=== PATIENT | female | born 1990 | race Caucasian/White ===

== ENCOUNTER → 2019-02-18 | Outpatient (CLI) | payer OTHER ==
--- NOTE | 2019-02-18 14:31 | US ---
EXAMINATION TYPE: US transvaginal DATE OF EXAM: 02/18/2019 COMPARISON: Prev OB only CLINICAL HISTORY: R01.2 Pelvic pain. Pt states RLQ pain x few months TECHNIQUE: Transvaginal (TV). Transvaginal sonographic images of the pelvis were acquired. Date of LMP: 02/08/2019 EXAM MEASUREMENTS: Uterus: 9.2 x 4.5 x 5.1 cm Endometrial Stripe: 0.8 cm Right Ovary: 2.6 x 2.0 x 2.9 cm Left Ovary: 2.7 x 2.0 x 1.9 cm 1. Uterus: Anteverted Heterogeneous with probable scar 2. Endometrium: wnl 3. Right Ovary: wnl 4. Left Ovary: wnl, dominant follicle= 1.1 cm 5. Bilateral Adnexa: wnl 6. Posterior cul-de-sac: wnl IMPRESSION: 1. The uterus is heterogeneous in appearance which is nonspecific finding. This can occasionally be s een with diffuse fibroid change or adenomyosis. No focal fibroid is seen. There is suspicion for a pr obable scar. Correlate with surgical history for confirmation.
== END | disposition home or self-care (01) ==
LOC: RADUSWWP 12:04
PROVIDERS: ATTEND Family Medicine
DX: N80.0 Endometriosis of uterus (principal); Z98.890 Other specified postprocedural states
CPT/HCPCS: 76830

== ENCOUNTER 2021-03-14 21:05 | Emergency (ER) | payer OTHER ==
[2021-03-14 22:01] LABS: Appearance,Urine Clear (Clear); Bilirubin,Urine Negative (Negative); Blood,Urine Negative (Negative); Color,Urine Light Yellow; Glucose,Urine (UA) Negative (Negative); Ketones,Urine Negative (Negative); Leukocyte Esterase,Urine Negative (Negative); Nitrite,Urine Negative (Negative); Protein,Urine Negative (Negative); Specific Gravity,Urine 1.021 (1.001-1.035); Urobilinogen,Urine <2.0 mg/dL (<2.0)
[2021-03-14] MEDS ORDERED: SODIUM CHLORIDE 0.9% 1,000 ML IV STA (22:43)
--- NOTE | 2021-03-14 22:45 | ED ---
General Adult HPI - General Chief complaint: Abdominal Pain Stated complaint: Fever,Pain in kidney area Time Seen by Provider: 03/14/21 22:30 Source: patient Mode of arrival: ambulatory Limitations: no limitations - History of Present Illness Initial comments: 30-year-old female presents to the emergency room for chief complaint of right flank pain. Patient reports for the past month or so on and off she has had right-sided low back pain. States it is a sharp pain. States it comes and goes. Patient states it was bothering her in the car but after she got here it resolved. Patient is also complaining of fevers on and off for the past few weeks. States today her temperature was 100.5. States it only comes every now and then. Patient states she has tested negative for covid. She denies cough or congestion. Denies sore throat..Patient has no other complaints at this time including shortness of breath, chest pain, abdominal pain, nausea or vomiting, headache, or visual changes. - Related Data Home Medications Medication Instructions Recorded Confirmed Pnv,Calcium 72/Iron/Folic Acid 1 each PO DAILY 06/06/15 06/06/15 [ Plus Tablet] Allergies Allergy/AdvReac Type Severity Reaction Status Date / Time No Known Allergies Allergy Verified 03/14/21 21:34 Review of Systems ROS Statement: Those systems with pertinent positive or pertinent negative responses have been documented in the HPI. ROS Other: All systems not noted in ROS Statement are negative. Past Medical History Past Medical History: No Reported History History of Any Multi-Drug Resistant Organisms: None Reported Past Surgical History: No Surgical Hx Reported Past Psychological History: No Psychological Hx Reported Smoking Status: Never smoker Past Alcohol Use History: None Reported Past Drug Use History: None Reported General Exam Limitations: no limitations General appearance: alert, in no apparent distress Head exam: Present: atraumatic Eye exam: Present: normal appearance, PERRL, EOMI. Absent: scleral icterus, conjunctival injection ENT exam: Present: normal exam, mucous membranes moist Neck exam: Present: normal inspection, full ROM. Absent: tenderness Respiratory exam: Present: normal lung sounds bilaterally. Absent: respiratory distress, wheezes Cardiovascular Exam: Present: regular rate, normal rhythm, normal heart sounds GI/Abdominal exam: Present: soft, normal bowel sounds. Absent: distended, tenderness Course Vital Signs 03/14/21 21:31 Temperature 98.2 F Pulse Rate 102 H Respiratory 19 Rate Blood Pressure 124/66 O2 Sat by Pulse 97 Oximetry Medical Decision Making - Medical Decision Making Vitals are stable. CBC unremarkable. CMP does show some evidence of dehydration. Urinalysis negative. HCG is negative. CT abdomen and pelvis shows a small nonobstructing left renal calculus however no cause for right flank pain. At this time patient is stable for outpatient follow-up. She will follow-up with her doctor. She will return to the emergency room for any worsening symptoms. - Lab Data Result diagrams: 03/14/21 23:30 03/14/21 22:50 Lab Results 03/14/21 03/14/21 03/14/21 Range/Units 21:35 22:25 22:50 WBC (3.8-10.6) k/uL RBC (3.80-5.40) m/uL Hgb (11.4-16.0) gm/dL Hct (34.0-46.0) % MCV (80.0-100.0) fL MCH (25.0-35.0) pg MCHC (31.0-37.0) g/dL RDW (11.5-15.5) % Plt Count (150-450) k/uL MPV Neutrophils % % Lymphocytes % % Monocytes % % Eosinophils % % Basophils % % Neutrophils # (1.3-7.7) k/uL Lymphocytes # (1.0-4.8) k/uL Monocytes # (0-1.0) k/uL Eosinophils # (0-0.7) k/uL Basophils # (0-0.2) k/uL Sodium 134 L (137-145) mmol/L Potassium 4.6 (3.5-5.1) mmol/L Chloride 104 (98-107) mmol/L Carbon Dioxide 22 (22-30) mmol/L Anion Gap 8 mmol/L BUN 22 H (7-17) mg/dL Creatinine 0.75 (0.52-1.04) mg/dL Est GFR (CKD-EPI)AfAm >90 (>60 ml/min/1.73 sqM) Est GFR (CKD-EPI)NonAf >90 (>60 ml/min/1.73 sqM) Glucose 96 (74-99) mg/dL Calcium 8.7 (8.4-10.2) mg/dL Total Bilirubin 1.1 (0.2-1.3) mg/dL AST 24 (14-36) U/L ALT 18 (4-34) U/L Alkaline Phosphatase 48 (38-126) U/L Total Protein 6.7 (6.3-8.2) g/dL Albumin 4.1 (3.5-5.0) g/dL Lipase 47 (23-300) U/L Urine Color Light Yellow Urine Appearance Clear (Clear) Urine pH 6.0 (5.0-8.0) Ur Specific [place] 1.021 (1.001-1.035) Urine Protein Negative (Negative) Urine Glucose (UA) Negative (Negative) Urine Ketones Negative (Negative) Urine Blood Negative (Negative) Urine Nitrite Negative (Negative) Urine Bilirubin Negative (Negative) Urine Urobilinogen <2.0 (<2.0) mg/dL Ur Leukocyte Esterase Negative (Negative) Urine HCG, Qual Not Detected (Not Detectd) 03/14/21 Range/Units 23:30 WBC 7.4 (3.8-10.6) k/uL RBC 3.65 L (3.80-5.40) m/uL Hgb 12.0 (11.4-16.0) gm/dL Hct 36.7 (34.0-46.0) % MCV 100.4 H (80.0-100.0) fL MCH 32.9 (25.0-35.0) pg MCHC 32.8 (31.0-37.0) g/dL RDW 11.6 (11.5-15.5) % Plt Count 185 (150-450) k/uL MPV 7.7 Neutrophils % 78 % Lymphocytes % 12 % Monocytes % 8 % Eosinophils % 1 % Basophils % 0 % Neutrophils # 5.7 (1.3-7.7) k/uL Lymphocytes # 0.9 L (1.0-4.8) k/uL Monocytes # 0.6 (0-1.0) k/uL Eosinophils # 0.1 (0-0.7) k/uL Basophils # 0.0 (0-0.2) k/uL Sodium (137-145) mmol/L Potassium (3.5-5.1) mmol/L Chloride (98-107) mmol/L Carbon Dioxide (22-30) mmol/L Anion Gap mmol/L BUN (7-17) mg/dL Creatinine (0.52-1.04) mg/dL Est GFR (CKD-EPI)AfAm (>60 ml/min/1.73 sqM) Est GFR (CKD-EPI)NonAf (>60 ml/min/1.73 sqM) Glucose (74-99) mg/dL Calcium (8.4-10.2) mg/dL Total Bilirubin (0.2-1.3) mg/dL AST (14-36) U/L ALT (4-34) U/L Alkaline Phosphatase (38-126) U/L Total Protein (6.3-8.2) g/dL Albumin (3.5-5.0) g/dL Lipase (23-300) U/L Urine Color Urine Appearance (Clear) Urine pH (5.0-8.0) Ur Specific [place] (1.001-1.035) Urine Protein (Negative) Urine Glucose (UA) (Negative) Urine Ketones (Negative) Urine Blood (Negative) Urine Nitrite (Negative) Urine Bilirubin (Negative) Urine Urobilinogen (<2.0) mg/dL Ur Leukocyte Esterase (Negative) Urine HCG, Qual (Not Detectd) Disposition Clinical Impression: Flank pain Disposition: HOME SELF-CARE Condition: Good Instructions (If sedation given, give patient instructions): Flank Pain (ED) Additional Instructions: Please take Motrin for pain. Follow-up with your doctor. Return to the emergency room for any worsening symptoms. Is patient prescribed a controlled substance at d/c from ED?: No Referrals: Mihir Root MD [Primary Care Provider] - 1-2 days Time of Disposition: 23:54
[2021-03-14 23:46] LABS: Basophils % (A) 0 %; Eosinophils # (A) 0.1 k/uL (0-0.7); Eosinophils % (A) 1 %; HCT 36.7 % (34.0-46.0); Lymphocytes # (A) 0.9 k/uL (1.0-4.8); Lymphocytes % (A) 12 %; MCH 32.9 pg (25.0-35.0); MCHC 32.8 g/dL (31.0-37.0); MCV 100.4 fL (80.0-100.0); Mean Platelet Volume 7.7; Monocytes # (A) 0.6 k/uL (0-1.0); Monocytes % (A) 8 %; Neutrophils # (A) 5.7 k/uL (1.3-7.7); Neutrophils % (A) 78 %; Platelet Count 185 k/uL (150-450); RBC 3.65 m/uL (3.80-5.40); RDW 11.6 % (11.5-15.5); WBC 7.4 k/uL (3.8-10.6)
[2021-03-14 23:46] LABS: ALT 18 U/L (4-34); AST 24 U/L (14-36); African American GFR (CKD) >90 (>60 ml/min/1.73 sqM); Albumin 4.1 g/dL (3.5-5.0); Alkaline Phosphatase 48 U/L (38-126); Anion Gap 8 mmol/L; Blood Urea Nitrogen 22 mg/dL (7-17); Calcium 8.7 mg/dL (8.4-10.2); Carbon Dioxide 22 mmol/L (22-30); Chloride 104 mmol/L (98-107); Glucose 96 mg/dL (74-99); Lipase 47 U/L (23-300); Non-African American GFR(CKD) >90 (>60 ml/min/1.73 sqM); Potassium 4.6 mmol/L (3.5-5.1); Sodium 134 mmol/L (137-145); Total Bilirubin 1.1 mg/dL (0.2-1.3); Total Protein 6.7 g/dL (6.3-8.2)
--- NOTE | 2021-03-14 23:46 | CT ---
EXAMINATION TYPE: CT abdomen pelvis wo con DATE OF EXAM: 03/14/2021 COMPARISON: None HISTORY: right flank pain CT DLP: 615.3 mGycm Automated exposure control for dose reduction was used. Images obtained from the diaphragm to the floor the pelvis without contrast. Lung bases are clear. There is no pleural effusion. Heart size is normal. There is no pericardial eff usion. Liver spleen stomach pancreas gallbladder appear intact. Bile ducts are not dilated. There is no adrenal mass. Kidneys have normal size. There is no hydronephrosis. There is 4 mm calculu s interpolar left kidney. There is no retroperitoneal adenopathy. Bladder distends smoothly. There is no free fluid in the pelvis. Uterus is anteverted. I see no pelvic mass. Lumbar vertebra have normal alignment. Disc spaces are fairly normal. Posterior elements are intact. There is no compression fra cture. Bony pelvis is intact. Hip joints are intact. There is no mesenteric edema. There is no ascites or free air. There is no bowel obstruction. Appendi x appears normal. IMPRESSION: Negative exam. I do not see a cause for right flank pain. There is nonobstructing small left renal ca lculus. No sign of appendicitis.
[2021-03-15 00:12] VITALS: BP 124/77; PULSE 92; RESP 20; TEMP 98.6
== END 2021-03-15 00:11 | disposition home or self-care (01) ==
LOC: EC 21:05
DX: R10.9 Unspecified abdominal pain (principal); R50.9 Fever, unspecified
CPT/HCPCS: 36415; 74176; 80053; 81003; 81025; 83690; 85025; 96360; 99284